=== PATIENT | male | born 1950 | race Two or more races ===

== ENCOUNTER 2018-01-04 19:18 | Inpatient (IN) | payer MEDICARE, BC ==
[2018-01-04 19:57] LABS: ADD MAN DIFF? NO
[2018-01-04 19:59] LABS: WHITE BLOOD COUNT 10.3 10^3/ul (4.8-10.8)
[2018-01-04 19:59] LABS: BASOPHIL # 0.1 10^3/ul (0.0-0.1); BASOPHILS % 0.7 % (0.0-2.0); EOSINOPHILS % 0.1 % (0.0-7.0); HEMOGLOBIN 11.2 g/dl (14.0-18.0); LYMPHOCYTES # 1.1 10^3/ul (0.8-2.9); MEAN CORPUSCULAR HEMOGLOBIN 32.2 pg (29.0-33.0); MEAN PLATELET VOLUME 10.9 fl (7.4-10.4); MONOCYTE # 0.9 10^3/ul (0.3-0.9); MONOCYTES % 8.7 % (0.0-11.0); NEUTROPHIL # 8.1 10^3/ul (1.6-7.5); NEUTROPHILS % 78.5 % (39.0-77.0); PLATELET COUNT 259 10^3/UL (140-415); RED BLOOD COUNT 3.48 10^6/ul (4.70-6.10); RED CELL DISTRIBUTION WIDTH 18.1 % (11.5-14.5)
[2018-01-04] MEDS: CEFEPIME 2GM/50 ML (PMX) 50 ML IVPB (20:00)
[2018-01-04] MEDS: ACETAMINOPHEN 325 MG TAB PO (20:00)
[2018-01-04] MEDS: VANCOMYCIN 1 GM (PMX) 250 ML IVPB (20:01)
[2018-01-04] MEDS: SODIUM CHLORIDE 0.9% 1L BAG IV* (20:16)
[2018-01-04 20:18] LABS: LACTIC ACID 1.3 mmol/L (0.5-2.0)
[2018-01-04 20:19] LABS: ALANINE AMINOTRANSFERASE 26 IU/L (13-69); ALBUMIN 2.6 g/dl (3.3-4.9); ALKALINE PHOSPHATASE 66 IU/L (42-121); ANION GAP 16 (8-16); ASPARTATE AMINO TRANSFERASE 13 IU/L (15-46); BILIRUBIN,INDIRECT 0.3 mg/dl (0-1.1); BILIRUBIN,TOTAL 0.3 mg/dl (0.2-1.3); BLOOD UREA NITROGEN 19 mg/dl (7-20); CALCIUM 6.2 mg/dl (8.4-10.2); CARBON DIOXIDE 12 mmol/L (21-31); CHLORIDE 117 mmol/L (97-110); CREATININE 0.74 mg/dl (0.61-1.24); GLUCOSE 261 mg/dl (70-220); POTASSIUM 3.1 mmol/L (3.5-5.1); SODIUM 142 mmol/L (135-144); TOTAL PROTEIN 5.2 g/dl (6.1-8.1)
[2018-01-04 20:21] LABS: PROTIME 14.4 Sec (11.9-14.9); PT RATIO 1.1
[2018-01-04 20:30] LABS: TROPONIN-I 0.021 ng/ml (0.00-0.12)
[2018-01-04] MEDS: POTASSIUM CHLORIDE (SR) 20 MEQ TAB PO (21:10)
[2018-01-04 22:48] LABS: ADD UMIC YES; UR ASCORBIC ACID NEGATIVE (NEGATIVE); UR BILIRUBIN (Dip) NEGATIVE (NEGATIVE); UR BLOOD (Dip) 3+ mg/dL (NEGATIVE); UR CLARITY CLOUDY (CLEAR); UR COLOR RED (YELLOW); UR GLUCOSE (Dip) 3+ mg/dL (NEGATIVE); UR KETONES (Dip) 1+ mg/dL (NEGATIVE); UR LEUKOCYTE ESTERASE (Dip) NEGATIVE Leu/ul (NEGATIVE); UR NITRITE (Dip) NEGATIVE (NEGATIVE); UR RBC > 182 /HPF (0-5); UR SPECIFIC GRAVITY (Dip) 1.022 (1.003-1.030); UR TOTAL PROTEIN (Dip) 2+ mg/dl (NEGATIVE); UR UROBILINOGEN (Dip) NEGATIVE (NEGATIVE); UR WBC 5 /HPF (0-5)
[2018-01-04] MEDS ORDERED: ACETAMINOPHEN 325 MG TAB PO (23:00)
[2018-01-04] MEDS ORDERED: ONDANSETRON 4 MG INJ IV (23:00)
[2018-01-04] MEDS ORDERED: ALBUTEROL/IPRATROPIUM (NEB) 3 ML AMP HHN (23:30)
[2018-01-04] MEDS ORDERED: NACL 0.9% 3 ML SYG IV (23:30)
[2018-01-05 00:33] LABS: CREATINE KINASE 44 IU/L (23-200)
[2018-01-05 00:44] LABS: CK INDEX 1.1; TROPONIN-I 0.048 ng/ml (0.00-0.12)
[2018-01-05] MEDS ORDERED: DEXTROSE 50% 50 ML SYRINGE IV ×2 (02:10)
[2018-01-05] MEDS ORDERED: GLUCAGON 1 MG INJ IM (02:10)
[2018-01-05] MEDS ORDERED: GLUCOSE GEL 15 GRAM TUBE BUCCAL (02:10)
[2018-01-05] MEDS ORDERED: GLUCOSE GEL 15 GRAM TUBE PO ×2 (02:10)
[2018-01-05 03:15] LABS: GLUCOSE 386 mg/dl (70-220)
[2018-01-05] MEDS: INSULIN ASPART [NOVOLOG] 3 ML PEN SC ×6 (03:37→23:00)
[2018-01-05] MEDS: PANTOPRAZOLE (EC) 40 MG TAB PO (05:50)
[2018-01-05] MEDS: CYCLOBENZAPRINE 10 MG TAB PO ×3 (05:50→22:37)
[2018-01-05 06:33] LABS: ADD MAN DIFF? NO
[2018-01-05 06:44] LABS: WHITE BLOOD COUNT 9.1 10^3/ul (4.8-10.8)
[2018-01-05 06:45] LABS: BASOPHIL # 0.1 10^3/ul (0.0-0.1); BASOPHILS % 0.9 % (0.0-2.0); HEMATOCRIT 31.2 % (42.0-52.0); HEMOGLOBIN 10.7 g/dl (14.0-18.0); LYMPHOCYTES # 1.1 10^3/ul (0.8-2.9); MEAN CORPUSCULAR HEMOGLOBIN 32.1 pg (29.0-33.0); MEAN CORPUSCULAR HGB CONC 34.3 g/dl (32.0-37.0); MEAN CORPUSCULAR VOLUME 93.7 fl (82.0-101.0); MEAN PLATELET VOLUME 11.3 fl (7.4-10.4); MONOCYTES % 11.2 % (0.0-11.0); NEUTROPHIL # 6.8 10^3/ul (1.6-7.5); NEUTROPHILS % 74.3 % (39.0-77.0); NUCLEATED RED BLOOD CELLS% 0.2 /100WBC (0.0-0.0); PLATELET COUNT 262 10^3/UL (140-415); RED BLOOD COUNT 3.33 10^6/ul (4.70-6.10); RED CELL DISTRIBUTION WIDTH 18.1 % (11.5-14.5)
[2018-01-05 07:01] LABS: ALANINE AMINOTRANSFERASE 20 IU/L (13-69); ALBUMIN 4.3 g/dl (3.3-4.9); ALBUMIN/GLOBULIN RATIO 1.43; ALKALINE PHOSPHATASE 87 IU/L (42-121); ANION GAP 21 (8-16); ASPARTATE AMINO TRANSFERASE 18 IU/L (15-46); BILIRUBIN,INDIRECT 0.3 mg/dl (0-1.1); BILIRUBIN,TOTAL 0.3 mg/dl (0.2-1.3); BLOOD UREA NITROGEN 24 mg/dl (7-20); CALCIUM 9.5 mg/dl (8.4-10.2); CARBON DIOXIDE 21 mmol/L (21-31); CHLORIDE 105 mmol/L (97-110); CHOLESTEROL 190 mg/dl (100-200); CREATINE KINASE 61 IU/L (23-200); CREATININE 1.17 mg/dl (0.61-1.24); GLUCOSE 265 mg/dl (70-220); HDL CHOLESTEROL 38 mg/dl (30-78); LDL CHOLESTEROL,CALCULATED 131 mg/dl; MAGNESIUM 1.8 mg/dl (1.7-2.5); PHOSPHORUS 2.3 mg/dl (2.5-4.9); POTASSIUM 4.4 mmol/L (3.5-5.1); SODIUM 143 mmol/L (135-144); TOTAL PROTEIN 7.3 g/dl (6.1-8.1); TRIGLYCERIDES 107 mg/dl (0-149)
[2018-01-05 07:03] LABS: HEMOGLOBIN A1C 10.7 % (0-5.9)
[2018-01-05 07:15] LABS: CK INDEX 1.3
[2018-01-05 07:17] LABS: FREE THYROXINE INDEX (Calc) 1.81 ug/ml (0.65-3.89); T3 UPTAKE 35.4 % (23.5-40.5); T4 (THYROXINE) 5.1 ug/dl (5.5-11.0)
[2018-01-05 07:46] LABS: CK-MB 0.81 ng/ml (0.0-2.4)
[2018-01-05 07:47] LABS: TROPONIN-I 0.193 ng/ml (0.00-0.12)
[2018-01-05 08:10] LABS: LACTIC ACID 2.3 mmol/L (0.5-2.0)
[2018-01-05] MEDS: LINAGLIPTIN 5 MG TABLET PO (08:42)
[2018-01-05] MEDS: metFORMIN 500 MG TAB PO ×2 (08:42→17:43)
[2018-01-05] MEDS: ISOSORBIDE MONONITRATE(SR)60 MG TAB PO (08:43)
[2018-01-05] MEDS: CEFTRIAXONE 1 GM/50 ML (PMX) 50 ML IVPB ×2 (08:43→22:37)
[2018-01-05] MEDS: SPIRONOLACTONE (5 MG/ML PO SYG) PO ×2 (09:00→14:00)
[2018-01-05] MEDS: BUPROPION 100 MG TAB PO (10:03)
[2018-01-05] MEDS: SOD CHLORIDE 0.9% 500 ML IV (10:48)
[2018-01-05] MEDS: POTASSIUM CHLORIDE 10 MEQ in SOD CHLORIDE 0.9% 1,000 ML IV ×2 (14:00→23:18)
[2018-01-05] MEDS: ACETAMINOPHEN 325 MG TAB PO (14:06)
[2018-01-05 15:23] LABS: LACTIC ACID 1.3 mmol/L (0.5-2.0)
[2018-01-05 15:49] LABS: TROPONIN-I 0.982 ng/ml (0.00-0.12)
[2018-01-05] MEDS: ASPIRIN (EC) 81 MG TAB PO (15:52)
[2018-01-05 20:51] LABS: TROPONIN-I 0.588 ng/ml (0.00-0.12)
[2018-01-05] MEDS: ATORVASTATIN 10 MG TAB PO (22:38)
[2018-01-05] MEDS: INSULIN GLARGINE [LANtus] 3 ML PEN SC (23:22)
[2018-01-06] MEDS: ACCU-CHEK XX (01:28)
[2018-01-06] MEDS: PANTOPRAZOLE (EC) 40 MG TAB PO (06:07)
[2018-01-06] MEDS: CYCLOBENZAPRINE 10 MG TAB PO ×3 (06:07→21:29)
[2018-01-06 08:05] LABS: ADD MAN DIFF? NO
[2018-01-06] MEDS: POTASSIUM CHLORIDE 10 MEQ in SOD CHLORIDE 0.9% 1,000 ML IV ×2 (08:06→18:09)
[2018-01-06 08:15] LABS: WHITE BLOOD COUNT 6.8 10^3/ul (4.8-10.8)
[2018-01-06 08:15] LABS: BASOPHILS % 0.6 % (0.0-2.0); EOSINOPHILS % 0.1 % (0.0-7.0); HEMATOCRIT 27.2 % (42.0-52.0); HEMOGLOBIN 9.1 g/dl (14.0-18.0); LYMPHOCYTES # 1.3 10^3/ul (0.8-2.9); LYMPHOCYTES % 19.1 % (15.0-51.0); MEAN CORPUSCULAR HEMOGLOBIN 31.2 pg (29.0-33.0); MEAN CORPUSCULAR HGB CONC 33.5 g/dl (32.0-37.0); MEAN CORPUSCULAR VOLUME 93.2 fl (82.0-101.0); MEAN PLATELET VOLUME 10.9 fl (7.4-10.4); MONOCYTE # 0.8 10^3/ul (0.3-0.9); NEUTROPHIL # 4.6 10^3/ul (1.6-7.5); NEUTROPHILS % 68.2 % (39.0-77.0); PLATELET COUNT 193 10^3/UL (140-415); RED BLOOD COUNT 2.92 10^6/ul (4.70-6.10); RED CELL DISTRIBUTION WIDTH 18.3 % (11.5-14.5)
[2018-01-06 08:32] LABS: ANION GAP 14 (8-16); BLOOD UREA NITROGEN 20 mg/dl (7-20); CALCIUM 8.6 mg/dl (8.4-10.2); CARBON DIOXIDE 22 mmol/L (21-31); CHLORIDE 109 mmol/L (97-110); GLUCOSE 188 mg/dl (70-220); SODIUM 141 mmol/L (135-144)
[2018-01-06 08:43] LABS: TROPONIN-I 0.276 ng/ml (0.00-0.12)
[2018-01-06] MEDS: INSULIN ASPART [NOVOLOG] 3 ML PEN SC ×5 (08:53→21:31)
[2018-01-06] MEDS: BUPROPION 100 MG TAB PO (10:20)
[2018-01-06] MEDS: ASPIRIN (EC) 81 MG TAB PO (10:27)
[2018-01-06] MEDS: ISOSORBIDE MONONITRATE(SR)60 MG TAB PO (10:27)
[2018-01-06] MEDS: LINAGLIPTIN 5 MG TABLET PO (10:28)
[2018-01-06] MEDS: CEFTRIAXONE 1 GM/50 ML (PMX) 50 ML IVPB (10:31)
[2018-01-06] MEDS: metFORMIN 500 MG TAB PO ×2 (10:31→13:30)
[2018-01-06] MEDS: SPIRONOLACTONE (5 MG/ML PO SYG) PO (13:16)
[2018-01-06] MEDS: IOHEXOL 300MG/ML 150 ML BTL (16:00)
[2018-01-06] MEDS: SOD CHLORIDE 0.9% 100 ML (16:00)
[2018-01-06] MEDS: METOPROLOL 25 MG TAB PO ×2 (17:39→21:29)
[2018-01-06] MEDS: ATORVASTATIN 10 MG TAB PO (21:29)
[2018-01-06] MEDS: INSULIN GLARGINE [LANtus] 3 ML PEN SC (21:46)
[2018-01-06] MEDS: morphine 2 MG INJ IV (21:47)
[2018-01-07] MEDS: ACCU-CHEK XX (02:00)
[2018-01-07] MEDS: POTASSIUM CHLORIDE 10 MEQ in SOD CHLORIDE 0.9% 1,000 ML IV ×2 (02:14→15:22)
[2018-01-07] MEDS: morphine 2 MG INJ IV ×3 (04:09→17:14)
[2018-01-07] MEDS: LEVOFLOXACIN 500 MG TAB PO (06:07)
[2018-01-07] MEDS: CYCLOBENZAPRINE 10 MG TAB PO ×3 (06:07→21:33)
[2018-01-07] MEDS: PANTOPRAZOLE (EC) 40 MG TAB PO (06:07)
[2018-01-07] MEDS: METOPROLOL 25 MG TAB PO ×2 (09:08→21:33)
[2018-01-07] MEDS: ISOSORBIDE MONONITRATE(SR)60 MG TAB PO (09:08)
[2018-01-07] MEDS: ASPIRIN (EC) 81 MG TAB PO (09:08)
[2018-01-07] MEDS: LINAGLIPTIN 5 MG TABLET PO (09:09)
[2018-01-07] MEDS: INSULIN ASPART [NOVOLOG] 3 ML PEN SC ×7 (09:11→21:00)
[2018-01-07] MEDS: metFORMIN 500 MG TAB PO (09:13)
[2018-01-07] MEDS: BUPROPION 100 MG TAB PO (10:35)
[2018-01-07] MEDS: ACETAMINOPHEN 325 MG TAB PO (18:05)
[2018-01-07] MEDS: TAMSULOSIN (SR) 0.4 MG CAP PO (21:33)
[2018-01-07] MEDS: SENNA/DOCUSATE NA (8.6MG/50MG) TAB PO (21:33)
[2018-01-07] MEDS: ATORVASTATIN 10 MG TAB PO (21:33)
[2018-01-07] MEDS: INSULIN GLARGINE [LANtus] 3 ML PEN SC (21:38)
[2018-01-08] MEDS: ACCU-CHEK XX (02:00)
[2018-01-08] MEDS: POTASSIUM CHLORIDE 10 MEQ in SOD CHLORIDE 0.9% 1,000 ML IV ×2 (02:47→08:06)
[2018-01-08] MEDS: CYCLOBENZAPRINE 10 MG TAB PO ×3 (06:01→21:13)
[2018-01-08] MEDS: LEVOFLOXACIN 500 MG TAB PO (06:01)
[2018-01-08] MEDS: INSULIN ASPART [NOVOLOG] 3 ML PEN SC ×7 (08:00→21:00)
[2018-01-08] MEDS: METOPROLOL 25 MG TAB PO ×2 (08:25→20:55)
[2018-01-08] MEDS: ISOSORBIDE MONONITRATE(SR)60 MG TAB PO (08:25)
[2018-01-08] MEDS: TAMSULOSIN (SR) 0.4 MG CAP PO ×2 (08:25→20:52)
[2018-01-08] MEDS: LINAGLIPTIN 5 MG TABLET PO (08:26)
[2018-01-08 08:28] LABS: ADD MAN DIFF? NO
[2018-01-08 08:34] LABS: BASOPHILS % 0.5 % (0.0-2.0); EOSINOPHILS % 0.1 % (0.0-7.0); HEMATOCRIT 28.9 % (42.0-52.0); HEMOGLOBIN 9.9 g/dl (14.0-18.0); LYMPHOCYTES # 1.1 10^3/ul (0.8-2.9); LYMPHOCYTES % 12.7 % (15.0-51.0); MEAN CORPUSCULAR HEMOGLOBIN 31.2 pg (29.0-33.0); MEAN CORPUSCULAR HGB CONC 34.3 g/dl (32.0-37.0); MEAN CORPUSCULAR VOLUME 91.2 fl (82.0-101.0); MEAN PLATELET VOLUME 11.4 fl (7.4-10.4); MONOCYTE # 0.8 10^3/ul (0.3-0.9); MONOCYTES % 9.5 % (0.0-11.0); NEUTROPHIL # 6.5 10^3/ul (1.6-7.5); NEUTROPHILS % 75.8 % (39.0-77.0); PLATELET COUNT 247 10^3/UL (140-415); RED BLOOD COUNT 3.17 10^6/ul (4.70-6.10); RED CELL DISTRIBUTION WIDTH 17.6 % (11.5-14.5)
[2018-01-08 08:34] LABS: WHITE BLOOD COUNT 8.5 10^3/ul (4.8-10.8)
[2018-01-08 08:50] LABS: INR 1.06; PROTIME 13.9 Sec (11.9-14.9); PT RATIO 1.1
[2018-01-08 08:55] LABS: ALANINE AMINOTRANSFERASE 18 IU/L (13-69); ALBUMIN/GLOBULIN RATIO 1.14; ALKALINE PHOSPHATASE 76 IU/L (42-121); ANION GAP 19 (8-16); ASPARTATE AMINO TRANSFERASE 18 IU/L (15-46); BILIRUBIN,INDIRECT 0.4 mg/dl (0-1.1); BILIRUBIN,TOTAL 0.4 mg/dl (0.2-1.3); BLOOD UREA NITROGEN 18 mg/dl (7-20); CALCIUM 9.3 mg/dl (8.4-10.2); CARBON DIOXIDE 21 mmol/L (21-31); CHLORIDE 106 mmol/L (97-110); CREATININE 1.12 mg/dl (0.61-1.24); GLUCOSE 140 mg/dl (70-220); POTASSIUM 3.9 mmol/L (3.5-5.1); SODIUM 142 mmol/L (135-144); TOTAL PROTEIN 7.5 g/dl (6.1-8.1)
[2018-01-08] MEDS: BUPROPION 100 MG TAB PO (10:26)
[2018-01-08] MEDS: ATORVASTATIN 10 MG TAB PO (20:52)
[2018-01-08] MEDS: SENNA/DOCUSATE NA (8.6MG/50MG) TAB PO (20:52)
[2018-01-08] MEDS: INSULIN GLARGINE [LANtus] 3 ML PEN SC (21:01)
[2018-01-09] MEDS: ACCU-CHEK XX (02:00)
[2018-01-09] MEDS: POTASSIUM CHLORIDE 10 MEQ in SOD CHLORIDE 0.9% 1,000 ML IV (03:30)
[2018-01-09] MEDS: CYCLOBENZAPRINE 10 MG TAB PO ×2 (05:58→15:57)
[2018-01-09] MEDS: ALPRAZOLAM 0.25 MG TAB PO ×2 (05:58→21:55)
[2018-01-09] MEDS: LEVOFLOXACIN 500 MG TAB PO (05:58)
[2018-01-09] MEDS: INSULIN ASPART [NOVOLOG] 3 ML PEN SC ×7 (08:00→21:00)
[2018-01-09 08:57] LABS: ADD MAN DIFF? NO
[2018-01-09 09:07] LABS: WHITE BLOOD COUNT 8.4 10^3/ul (4.8-10.8)
[2018-01-09 09:07] LABS: BASOPHILS % 0.5 % (0.0-2.0); EOSINOPHILS # 0.1 10^3/ul (0.0-0.5); HEMATOCRIT 25.3 % (42.0-52.0); HEMOGLOBIN 8.7 g/dl (14.0-18.0); LYMPHOCYTES # 1.1 10^3/ul (0.8-2.9); LYMPHOCYTES % 13.2 % (15.0-51.0); MEAN CORPUSCULAR HEMOGLOBIN 31.1 pg (29.0-33.0); MEAN CORPUSCULAR HGB CONC 34.4 g/dl (32.0-37.0); MEAN CORPUSCULAR VOLUME 90.4 fl (82.0-101.0); MEAN PLATELET VOLUME 11.2 fl (7.4-10.4); MONOCYTE # 0.8 10^3/ul (0.3-0.9); MONOCYTES % 9.6 % (0.0-11.0); NEUTROPHIL # 6.2 10^3/ul (1.6-7.5); NEUTROPHILS % 73.7 % (39.0-77.0); PLATELET COUNT 238 10^3/UL (140-415); RED CELL DISTRIBUTION WIDTH 17.7 % (11.5-14.5)
[2018-01-09 09:25] LABS: ANION GAP 16 (8-16); BLOOD UREA NITROGEN 19 mg/dl (7-20); CALCIUM 8.9 mg/dl (8.4-10.2); CARBON DIOXIDE 20 mmol/L (21-31); CHLORIDE 110 mmol/L (97-110); CREATININE 0.98 mg/dl (0.61-1.24); GLUCOSE 189 mg/dl (70-220); POTASSIUM 3.5 mmol/L (3.5-5.1); SODIUM 142 mmol/L (135-144)
[2018-01-09 09:27] LABS: INR 1.09; PROTIME 14.3 Sec (11.9-14.9); PT RATIO 1.1
[2018-01-09] MEDS: BUPROPION 100 MG TAB PO (09:56)
[2018-01-09] MEDS: LINAGLIPTIN 5 MG TABLET PO (10:01)
[2018-01-09] MEDS: TAMSULOSIN (SR) 0.4 MG CAP PO ×2 (10:01→21:00)
[2018-01-09] MEDS: METOPROLOL 25 MG TAB PO (10:02)
[2018-01-09] MEDS: ISOSORBIDE MONONITRATE(SR)60 MG TAB PO (10:04)
[2018-01-09] MEDS ORDERED: VITAMIN A & D 5 GM OINT PACKET TOP (15:41)
[2018-01-09] MEDS: NYSTATIN SUSP 5 ML CUP PO ×2 (17:00→21:00)
[2018-01-09] MEDS: METOPROLOL 50 MG TAB PO (21:00)
[2018-01-09] MEDS: SENNA/DOCUSATE NA (8.6MG/50MG) TAB PO (21:00)
[2018-01-09] MEDS: ATORVASTATIN 40 MG TAB PO (21:00)
[2018-01-09] MEDS ORDERED: ATORVASTATIN 10 MG TAB PO (21:00)
[2018-01-09] MEDS: INSULIN GLARGINE [LANtus] 3 ML PEN SC (22:02)
[2018-01-09] MEDS: LORAZEPAM 2 MG INJ IV (23:10)
[2018-01-10] MEDS: ACCU-CHEK XX (02:00)
[2018-01-10] MEDS: hydrALAzine 20 MG INJ IV (04:41)
[2018-01-10] MEDS: LEVOFLOXACIN 500 MG TAB PO (05:49)
[2018-01-10 07:25] LABS: ADD MAN DIFF? NO
[2018-01-10] MEDS: ISOSORBIDE MONONITRATE(SR)60 MG TAB PO (07:32)
[2018-01-10] MEDS: LINAGLIPTIN 5 MG TABLET PO (07:32)
[2018-01-10] MEDS: METOPROLOL 50 MG TAB PO ×2 (07:33→21:20)
[2018-01-10 07:34] LABS: BASOPHIL # 0.1 10^3/ul (0.0-0.1); BASOPHILS % 0.6 % (0.0-2.0); EOSINOPHILS # 0.2 10^3/ul (0.0-0.5); EOSINOPHILS % 2.7 % (0.0-7.0); HEMATOCRIT 25.1 % (42.0-52.0); HEMOGLOBIN 8.7 g/dl (14.0-18.0); LYMPHOCYTES # 1.4 10^3/ul (0.8-2.9); LYMPHOCYTES % 18.2 % (15.0-51.0); MEAN CORPUSCULAR HEMOGLOBIN 31.2 pg (29.0-33.0); MEAN CORPUSCULAR HGB CONC 34.7 g/dl (32.0-37.0); MEAN PLATELET VOLUME 11.7 fl (7.4-10.4); MONOCYTE # 0.5 10^3/ul (0.3-0.9); MONOCYTES % 6.8 % (0.0-11.0); NEUTROPHIL # 5.4 10^3/ul (1.6-7.5); NEUTROPHILS % 68.4 % (39.0-77.0); PLATELET COUNT 261 10^3/UL (140-415); RED BLOOD COUNT 2.79 10^6/ul (4.70-6.10); RED CELL DISTRIBUTION WIDTH 17.8 % (11.5-14.5)
[2018-01-10 07:34] LABS: WHITE BLOOD COUNT 7.8 10^3/ul (4.8-10.8)
[2018-01-10] MEDS: TAMSULOSIN (SR) 0.4 MG CAP PO ×2 (07:34→21:20)
[2018-01-10] MEDS: NYSTATIN SUSP 5 ML CUP PO ×4 (07:40→21:19)
[2018-01-10] MEDS: INSULIN ASPART [NOVOLOG] 3 ML PEN SC ×7 (07:46→21:29)
[2018-01-10] MEDS: BUPROPION 100 MG TAB PO (07:54)
[2018-01-10 08:02] LABS: ANION GAP 21 (8-16); BLOOD UREA NITROGEN 17 mg/dl (7-20); CALCIUM 9.3 mg/dl (8.4-10.2); CARBON DIOXIDE 20 mmol/L (21-31); CHLORIDE 107 mmol/L (97-110); CREATININE 0.89 mg/dl (0.61-1.24); GLUCOSE 132 mg/dl (70-220); MAGNESIUM 1.6 mg/dl (1.7-2.5); POTASSIUM 3.4 mmol/L (3.5-5.1); SODIUM 145 mmol/L (135-144)
[2018-01-10] MEDS: REGADENOSON 0.4 MG/5 ML SYG (11:37)
[2018-01-10] MEDS ORDERED: NICOTINE POLACRILEX 2 MG GUM BUCCAL (14:00)
[2018-01-10] MEDS ORDERED: NICOTINE POLACRILEX 4 MG GUM BUCCAL (14:00)
[2018-01-10] MEDS: NICOTINE (21 MG/24 HR) PATCH TRANSDERM (15:07)
[2018-01-10] MEDS: POTASSIUM CHLORIDE (SR) 20 MEQ TAB PO (15:46)
[2018-01-10] MEDS ORDERED: HALOPERIDOL 5 MG INJ IM (16:00)
[2018-01-10] MEDS ORDERED: POTASSIUM CHLORIDE 10 MEQ in SOD CHLORIDE 0.9% 1,000 ML IV (16:00)
[2018-01-10] MEDS: PIPER-TAZO 3.375 GM IV (PMX) 100 ML IVPB ×2 (16:54→21:11)
[2018-01-10] MEDS: POTASSIUM CHLORIDE 20 MEQ POWDER FOR ORAL SOLN PO (16:55)
[2018-01-10] MEDS ORDERED: MIDAZOLAM 1 MG/ML 2 ML INJ ×2 (18:05→18:14)
[2018-01-10] MEDS ORDERED: morphine SULFATE/PF (10 MG/10 ML) INJ (18:06)
[2018-01-10] MEDS ORDERED: BUPIVACAINE 0.75%/DEXT (SPINAL) 2 ML INJ (18:07)
[2018-01-10] MEDS ORDERED: PHENYLephrine (100 MCG/ML) 5ML SYG (18:18)
[2018-01-10] MEDS ORDERED: ONDANSETRON 4 MG INJ (18:32)
[2018-01-10] MEDS ORDERED: PROPOFOL 20 ML (18:32)
[2018-01-10] MEDS ORDERED: METOCLOPRAMIDE 10 MG INJ (18:32)
[2018-01-10] MEDS ORDERED: DEXAMETHASONE 4 MG/ML 1 ML INJ (18:32)
[2018-01-10] MEDS ORDERED: METHYLENE BLUE 1% 10 ML INJ ×2 (18:51→18:52)
[2018-01-10] MEDS ORDERED: FUROSEMIDE 20 MG INJ (19:07)
[2018-01-10] MEDS: ALBUTEROL 0.083% (NEB) 2.5 MG/3 ML AMP HHN (19:43)
[2018-01-10] MEDS ORDERED: NALOXONE (0.4 MG/ML) INJ IV (20:00)
[2018-01-10] MEDS ORDERED: ONDANSETRON 4 MG INJ IV (20:00)
[2018-01-10] MEDS ORDERED: NALBUPHINE HCL (10 MG/1 ML) INJ IV (20:00)
[2018-01-10] MEDS ORDERED: HYDROmorphONE 0.5 MG/0.5 ML SYG IV ×2 (20:00)
[2018-01-10] MEDS ORDERED: DIPHENHYDRAMINE 50 MG INJ IV (20:00)
[2018-01-10] MEDS ORDERED: morphine 2 MG INJ IV ×2 (20:00)
[2018-01-10] MEDS ORDERED: ACETAMINOPHEN 500 MG TAB PO (20:00)
[2018-01-10] MEDS: ATORVASTATIN 40 MG TAB PO (21:19)
[2018-01-10] MEDS: SENNA/DOCUSATE NA (8.6MG/50MG) TAB PO (21:20)
[2018-01-10] MEDS: LOSARTAN 25 MG TAB PO (21:20)
[2018-01-10] MEDS: INSULIN GLARGINE [LANtus] 3 ML PEN SC (21:29)
[2018-01-11] MEDS: morphine 2 MG INJ IV (00:55)
[2018-01-11] MEDS: ONDANSETRON 4 MG INJ IV (00:55)
[2018-01-11] MEDS: ALBUTEROL 0.083% (NEB) 2.5 MG/3 ML AMP HHN ×3 (01:32→13:08)
[2018-01-11] MEDS: ACCU-CHEK XX (01:42)
[2018-01-11] MEDS: INSULIN ASPART [NOVOLOG] 3 ML PEN SC ×7 (02:01→17:08)
[2018-01-11] MEDS: PIPER-TAZO 3.375 GM IV (PMX) 100 ML IVPB ×2 (05:05→13:21)
[2018-01-11] MEDS: LINAGLIPTIN 5 MG TABLET PO (08:41)
[2018-01-11] MEDS: METOPROLOL 50 MG TAB PO (08:41)
[2018-01-11] MEDS: ISOSORBIDE MONONITRATE(SR)60 MG TAB PO (08:42)
[2018-01-11 08:43] LABS: ADD MAN DIFF? NO
[2018-01-11] MEDS: LOSARTAN 25 MG TAB PO (08:44)
[2018-01-11] MEDS: NICOTINE (21 MG/24 HR) PATCH TRANSDERM (08:45)
[2018-01-11] MEDS: NYSTATIN SUSP 5 ML CUP PO ×3 (08:45→17:05)
[2018-01-11 08:47] LABS: WHITE BLOOD COUNT 6.9 10^3/ul (4.8-10.8)
[2018-01-11 08:47] LABS: BASOPHILS % 0.6 % (0.0-2.0); EOSINOPHILS % 0.1 % (0.0-7.0); HEMATOCRIT 26.1 % (42.0-52.0); LYMPHOCYTES # 0.8 10^3/ul (0.8-2.9); LYMPHOCYTES % 11.7 % (15.0-51.0); MEAN CORPUSCULAR HEMOGLOBIN 31.7 pg (29.0-33.0); MEAN CORPUSCULAR HGB CONC 34.5 g/dl (32.0-37.0); MEAN CORPUSCULAR VOLUME 91.9 fl (82.0-101.0); MEAN PLATELET VOLUME 10.9 fl (7.4-10.4); MONOCYTE # 0.5 10^3/ul (0.3-0.9); MONOCYTES % 6.5 % (0.0-11.0); NEUTROPHIL # 5.3 10^3/ul (1.6-7.5); NEUTROPHILS % 76.2 % (39.0-77.0); PLATELET COUNT 341 10^3/UL (140-415); RED BLOOD COUNT 2.84 10^6/ul (4.70-6.10); RED CELL DISTRIBUTION WIDTH 17.9 % (11.5-14.5)
[2018-01-11] MEDS: TAMSULOSIN (SR) 0.4 MG CAP PO (08:49)
[2018-01-11] MEDS: BUPROPION 100 MG TAB PO (08:56)
[2018-01-11 09:07] LABS: MAGNESIUM 1.8 mg/dl (1.7-2.5)
[2018-01-11 09:11] LABS: ANION GAP 20 (8-16); BLOOD UREA NITROGEN 23 mg/dl (7-20); CALCIUM 9.5 mg/dl (8.4-10.2); CARBON DIOXIDE 22 mmol/L (21-31); CHLORIDE 107 mmol/L (97-110); CREATININE 1.08 mg/dl (0.61-1.24); GLUCOSE 221 mg/dl (70-220); POTASSIUM 4.4 mmol/L (3.5-5.1); SODIUM 145 mmol/L (135-144)
== END 2018-01-11 18:13 | disposition home health service (06) | DRG 853 ==
LOC: PP2 22:55 → E/R 19:18 → MS4 01-05 15:58
PROC: 0TBB8ZX Excision of Bladder, Via Natural or Artificial Opening Endoscopic, Diagnostic (ICD-10-PCS; principal; 2018-01-10 17:30)
PROC: 0T9B70Z Drainage of Bladder with Drainage Device, Via Natural or Artificial Opening (ICD-10-PCS; 2018-01-10 17:30)
PROC: 0T9B70Z Drainage of Bladder with Drainage Device, Via Natural or Artificial Opening (ICD-10-PCS; 2018-01-10 18:08)
DX: A41.9 Sepsis, unspecified organism (principal); J69.0 Pneumonitis due to inhalation of food and vomit; I21.A1 Myocardial infarction type 2; G93.40 Encephalopathy, unspecified; N39.0 Urinary tract infection, site not specified; E87.2 Acidosis; I50.42 Chronic combined systolic (congestive) and diastolic (congestive) heart failure; I69.351 Hemiplegia and hemiparesis following cerebral infarction affecting right dominant side; I42.9 Cardiomyopathy, unspecified; F17.213 Nicotine dependence, cigarettes, with withdrawal; I11.0 Hypertensive heart disease with heart failure; E11.65 Type 2 diabetes mellitus with hyperglycemia; D49.4 Neoplasm of unspecified behavior of bladder; E78.5 Hyperlipidemia, unspecified; F10.11 Alcohol abuse, in remission; I25.10 Atherosclerotic heart disease of native coronary artery without angina pectoris; I69.322 Dysarthria following cerebral infarction; I69.321 Dysphasia following cerebral infarction; I69.392 Facial weakness following cerebral infarction; I25.2 Old myocardial infarction; J44.9 Chronic obstructive pulmonary disease, unspecified; K80.20 Calculus of gallbladder without cholecystitis without obstruction; N40.0 Benign prostatic hyperplasia without lower urinary tract symptoms; R31.0 Gross hematuria; R53.83 Other fatigue; R53.81 Other malaise; Z95.1 Presence of aortocoronary bypass graft; Z79.84 Long term (current) use of oral hypoglycemic drugs; Z79.02 Long term (current) use of antithrombotics/antiplatelets; Z79.82 Long term (current) use of aspirin
CPT/HCPCS: 36415; 70450; 70551; 71045; 74178; 76775; 78452; 80048; 80053; 80061; 81001; 82306; 82550; 82553; 82947; 82962; 83036; 83605; 83735; 84100; 84436; 84443; 84479; 84484; 85025; 85610; 85730; 87040; 87086; 88104; 88305; 92526; 92610; 93005; 93017; 93306; 93880; 94640; 96374; 96375; 97110; 97162; 97530; 99291-25